=== PATIENT | female | born 1995 | race Caucasian/White ===

== ENCOUNTER 2024-12-23 20:53 | Emergency (ER) | payer SELFPAY ==
--- OUTSIDE RECORDS SUMMARY | 2022-08-02 08:21 | XMS_ITS | Continuity of Care Document ---
Author Organization [facility] [employer] [facility] Address [address] [place] [address] Phone Care Team Providers Care Wrapping Clerk Name Role Phone Scar Alexander APRN Unavailable Unavailable Allergies, Adverse Reactions, Alerts Substance Reaction Status Criticality pork derived (porcine) Vomitting Active No In formation Medications Medication Instructions Dosage Effective Dates (start - stop) Status Comments Keppra 1,000 mg tablet take 1 tablet by oral route every 12 hours 1000 MG - Active 28 mg-800 mcg tablet take 1 tab po once daily - Active Procedures Procedure Date BODY MASS INDEX DOCD OFFICE/OUTPATIENT VISIT, EST ROUTINE VENIPUNCTURE ROUTINE VENIPUNCTURE OFFICE/OUTPATIENT VISIT, EST URINE TEST OFFICE/OUTPATIENT VISIT, NEW Advance Directives Directive Yes / No Effective Date File Name No Information Encounters Encounter Description Practice Location Reason(s) For Visit Diagnoses Date Provider Providers Copied on Encounter [facility] [employer] [facility], [address], [place], [place], [id number], [place] tel:[phone] Quick Sick - LSX No Information 3 Benjamin Abbott. [address], [id number] [address], [place], [address], [place]. tel:[phone] OFFICE/OUTPA TIENT VISIT, EST [facility], [address] [place] [address], [id number], [place] tel:[phone] Quick Sick - LSX STI screening (chief complaint) STD screening - GC / Chlamydia Benjamin Abbott. [address] [place] [address], [id number] [address], [address], [place]. tel:[phone] [facility], [address] [place] [address], [id number], [place] tel:[phone] [place] No Information Aug-0 9 7 Maria Del Rosario Cottrell. [address] [place] [address], [id number] [address] [place] [address], [address], [place]. tel:[phone] OFFICE/OUTPA TIENT VISIT, [facility], [address] [place] [address], [id number], tel:[phone] Demetrius seizures (chief complaint)n ew patient (chief complaint) Seizure disorderPrediabet esNicotine usePre-conception counselingGERD 8 7 Ever Barrera. [address] [place] [address], [address] [place] [address], [address], [place]. tel:[phone] OFFICE/OUTPA TIENT VISIT, [facility], [address] [place] [address], [id number], tel:[phone] Quick Sick - LSX Medication refill (chief complaint) Nicotine useMedication refillAmenorrhea, unspecified 0 2201 7 Yanique [employer] Shaniqua. [address] [place] [address], [id number] [address] [place] [address], [id number] , [place]. tel:[phone] Family History Family Member Type Diagnosis Age At Onset Negative family hx Problem (finding) Anesthesia proble ms Negative family hx Problem (finding) Dyslipidemia Negative family hx Problem (finding) Anemia Negative family hx Problem (finding) CAD Negative family hx Problem (finding) Cancer Positive family hx Problem (finding) deafness Positive family hx Problem (finding) asthma Negative family hx Problem (finding) tuberculosis Negative family hx Problem (finding) Seizures Negative family hx Problem (finding) Kidney disease Negative family hx Problem (finding) Allergies Negative family hx Problem (finding) Bleeding disorder s Negative family hx Problem (finding) Hypertension Negative family hx Problem (finding) Diabetes Payers Payer name Insurance type Covered alliance party ID Ronald fam(s) [employer] Medicaid CI [id number] Social History Type Description Quantity Date Captured Comments Sex Female Smoking Status No Information Sexual Orientation Straight or heterosexual Gender Identity Female Chief Complaint And Reason For Visit No Information Reason For Referral Reason For Referral No Information Plan Of Treatment Date Type Action Status Referral ordered Future Order: Lab Order Keppra ( Levetiracetam) level ([id number]), Collected on: , Sent on: Sent History Of Present Illness Encounter Date Complaint History Of Prese nt Illness STI screening Her boyfriend ch eated on her. She is asymptomatic. Her boyfriend had reactive syphilis but it was false positive. He is being retested again new patient Pt [facility].Pt reports hx of the following chronic conditions: prediabetes, exercise induced asthma, seizure disorder, GERDPt takes the following medications regularly: keppra 750 mg BID, ibuprofen 800 mg, pickle juice for her GERD sxs (is not intersted in other meds states she failed tums rolaids, zantac, prilosec)Pt reports hx of the following surgeries: wisdom teeth extractionPt lives with ravinder Garcia, and 2 other adults and 1 childPt does not work. Pt does not drive. Pt's LMP was 07/27/16Pt is Pt is sexually active with Song. Is trying to conceive. Pt does smoke tobacco 1 ppd x 1 year. Pt does drink alcohol (beer, and liquor) 3 drinks a sitting. once or twice a month. Pt denies use of tobacco, alcohol and ilicit drugs. seizures Pt presents to [facility] c/o seizure disorder. 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 Reports she was followed by 2 difrerent outside PCPs in the recent past and has been evaluated by a neurologist as well. Pt states she has had MRI/EEG done in the past and reports she is the first in her family to have a seizure disorder. Pt feels like her current mediations are not working as she is still having seizures at least once a week. Pt reports she thinks she had a seizure while sleping 2 nights ago, seizure was unwitnessed, but woke up with bite on tongue. Pt reprots that her seizures usually last about 15-20 seconds, denies that she stops breathing or has urinary/fecal incontinence, does report + post-ictal states after seizures. Pt's reports last seizure he witndessed was 2 weeks ago, and he tells a similar account of her seizures. Pt reports triggers for seizures include bright lights, stress, not eating meals regularly/eating too much, not enough sleep. Pt denies any recent falls or head trauma due to LOC with seizure. Pt does not drive, pt does not work, and pt is never left alone at home for more than 2 hours per the ER doctors instructions. Pt reports she is currently taking keppra 750 mg BID and it is not enough. Pt is requesting medication change. reports she was taking lamictal XR 500 mg once daily in the past and that helped but had to stop it due to cost, and was on depakote up until she got late lastyear. Of note pt and her are trying to conceive. Pt is not on a vitamin. Pt reports she miscarried her frist in May of this year and this is why she is still on keppra as they had to stop depakote. Medication refill Acute clinic; 21 yo female presents for medication refill on Keppra for hx of seizures. Pt is desiring to establish care at , appointment scheduled for 08/22/16. CTII notes indicate that pt has been seen various times since May for refills, told to follow up with neurologist, pt has an outstanding balance with neuro, so has not been seen. Pt reports most recent refill was from [facility] 2 weeks ago. Pt last dose of Keppra was this morning. States last seizure was last night while she was sleeping, states she is controlled during the day, but not at night. States she is having seizures at night because she wakes up feeling tired and occasionally feels as if she bit her tongue. No urinary incontinence has not witnessed seizure activity at night. Not well controlled on Keppra, but states it is the only thing that she can afford. Lamictal XR is the only thing that has helped, but she cannot take afford it. Pt states that the generic caused increased seizure activity. Pt reports she has had seizures since she was 15.[place] name: Imelda Potter ([facility])( 07/2016) Functional Status Date Functional Assessmen t No Information Instructions Date Instruction Additional Infor mation No Information Assessments Type Assessment Date No Information Patient Care Teams Name Effective Dates (start - stop) Status Members No Information
--- OUTSIDE RECORDS SUMMARY | 2024-12-23 21:01 | XMS_ITS | Encounter Summary ---
Author Organization [facility] Address [address] [address] Phone Care Team Providers Care Lawn Service Supervisor Name Role Phone Theo Brown MD Primary Care Provider [phone] Pina Bassett Unavailable [phone] Reason for Visit * Reason Onset Date Comments Asking for Neuro Referral, Having Seizures DAILY & Migraines 04/17/2018 Encounter Details Date Type Department Care Team (Late st Contact Info) Description 04/17/2018 Telephone [facility] [address] [place] [id number] Allison Weir, DUTCH [address] [place] [address] Asking for Neuro Referral, Having Seizures DAILY & Migraines Social History Tobacco Use Types Packs/Day Years Used Date Smoking Tobacco: Every Day Cigarettes 0.5 105 Smokeless Tobacco: Former Comments:used to smoke 1.5 p acks per day before - tried vape during , and decided to stop due to Alcohol Use Standard Drinks/Week Comments No 0 (1 standard drink = 0.6 oz pure alcohol) maybe drinks once month, when not Comments Yes Sex and Gender Information Value Date Recorded Sex Assigned at Not on file Legal Sex Female 9:43 PM CDT Gender Identity Not on file Sexual Orientation Not on file documented as of this encounter Functional Status * Patient's Vision Adequate to Safely Complete Daily Activities Answer Date of Assessment Author Yes 04/30/2017 8:33 PM BOTTOM SAW OPERATOR Benito Vargas, RN * Patient's Judgement Adequate to Safely Complete Daily Activities Answer Date of Assessment Author Yes 04/30/2017 8:33 PM BOTTOM SAW OPERATOR Benito Vargas RN documented as of this encounter Mental Status * Patient's Memory Adequate to Safely Complete Daily Activities Answer Entry Date Author Yes 04/30/2017 8:33 PM BOTTOM SAW OPERATOR Benito Vargas RN documented in this encounter Miscellaneous Notes * Telephone Encounter - Allison Weir RN - 04/17/2018 12:[address] Brown: FYI... Pt with appt tomorrow - Refused appt today. Pt calling for a Neuro referral ([facility]). States she has NOT seen a Neurologist since she was 15 - when her seizures started. Pt is in her first Trimester - seeing Dr. Garrison Hernandez on 04/24/18 for her Regular Appt & States she is seeing HIM for her F/[facility] yesterday for UTI. After further discussion, pt states, I am having seizures everyday while my little one is napping . Pt also having Migraines lately . She is being short with me because I told her that I can't just send Dr. Brown a message & she NTBS soon . I sent a soft transfrer - pt was offered a 1:45 PM appointment with you TODAY, she told Micki This is ridiculous, I don't have a ride . Pt made an appointment for tomorrow, , 04/18/2018 @ 2:15 PM. OM SAW OPERATOR documented in this encounter Plan of Treatment Not on file documented as of this encounter Visit Diagnoses Not on filedocumented in this encounter Care Teams Lawn Service Supervisor Relationship Specialty Start Date End Date Theo Brown MD [address] [place] [address] PCP - General Family Medicine 10/09/16 Pina Bassett LIMHP [address] [facility] [place] [address] Counselor Behavioral Health 10/08/19 08/11/20 documented as of this encounter
--- OUTSIDE RECORDS SUMMARY | 2024-12-23 21:01 | XMS_ITS | Clinical Summary ---
Author Organization [facility] Address [address] [place] [address] Care Team Providers Care Product Safety Compliance Leader Name Role Phone Theo Brown MD Primary Care Provider [phone] Allergies Active Allergy Reactions Criticality Noted Date Comments Adhesive Itching,Rash High 04/27/2017 Atomoxetine History Unknown 04/21/2020 Lactose Diarrhea 12/17/2019 Patient states she can still eat cheese or sour cream. Latex Rash High 04/18/2018 Nickel Itching 09/07/2020 Silver Sulfadiazine Rash High 10/24/2019 Medications acetaminophen (TYLENOL) 325 mg tablet Take 650 mg by mouth every 6 (six) hours as needed. Active DME MISCIndications:D urable Medical Equipment Atomizer for Nayzilam 1 Units 1 021 Active ondansetron (ZOFRAN-ODT) 4 mg disintegrating tabletIndications :Acute Gastroenteritis-r elated Vomiting in Pediatrics Take 1 tablet (4 mg total) by mouth every 6 (six) hours as needed for Nausea or Vomiting. 20 tablet 023 Active sertraline (ZOLOFT) 100 mg tablet Take 1 tablet (100 mg total) by mouth 1 (one) time a day. 023 Active midazolam (NAYZILAM) 5 mg/spray (0.1 mL) [place] 1 spray by Nasal route See Admin Instructions. Instill one spray (5 mg) in one nostril as needed for generalized seizure greater than 3 minutes or 3 focal seizures within 4 hours or any seizure with respiratory distress - may use an additional spray in opposite nostril after 10 minutes if no response. No more than 2 sprays in 24 hours. 2 each 1 024 Active cloBAZam (ONFI) 10 mg Tab tablet Take 2 tablets (20 mg total) by mouth bedtime. 180 tablet 1 025 Active BRIVIACT 100 mg Tab tablet TAKE ONE TABLET BY MOUTH TWO TIMES A DAY 180 tablet 1 Active brivaracetam (BRIVIACT) 100 mg Tab tablet Take 1 tablet (100 mg total) by mouth in the morning and 1 tablet (100 mg total) before bedtime. 180 tablet 1 025 2024 Discontinued(R eorder) cloBAZam (ONFI) 10 mg Tab tablet Take 2 tablets (20 mg total) by mouth bedtime. 180 tablet 1 025 2024 Discontinued(R eorder) brivaracetam (BRIVIACT) 100 mg Tab tablet Take 1 tablet (100 mg total) by mouth in the morning and 1 tablet (100 mg total) before bedtime. 180 tablet 1 025 2024 Discontinued Active Problems Problem Noted Date Diagnosed Date Suicidal ideation 07/11/2022 Recurrent major depressive disorder 06/27/2022 Nausea 06/24/2022 Assessment & Plan (06/27/2022 12:52 PM CDT): -overnight 06/23-06/24, experienced episode of dizziness and nausea that improved with half liter bolus of lactated Ringer's and ondansetron. -Reports that she has had difficulty with nausea/vomiting/dizziness since starting the keppra, she believes this is likely contributing. Plan: - Neurology consulted to assist in possible titration/changes to antiseizure medications -See intentional overdose assessment & plan Intentional overdose 06/23/2022 Assessment & Plan (06/27/2022 12:51 PM CDT): -Reports taking approximately 40 pills total in an attempt to end her life. -Reports financial stressors as a motivator; lost her job and will become homeless in August. -Reports significant other told her she deserves her changes in socioeconomic circumstances Ingestion included: -Keppra -Lamictal -Vtiamin B6 -Unknown antihistamine -Poison control without any concrete recommendations with this specific overdose -Tylenol, salicylate and alcohol negative on admission. 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 Currently maintained on Keppra, Lamictal, Onfi. Uncertain date of last seizure. Keppra level on admission 209 Lamictal level 20.7 Plan: -Neurology consulted for assistance in restarting AEDs, appreciate their help - All AEDs restarted at home doses Psychogenic nonepileptic seizure 09/28/2011 Encounters Date Type Department Care Team Description 12/16/2024 Refill Neurology at [address], [address] [address] Duncan Park MD Medication Refill 11/25/2024 Telephone Neurology at [address], [facility] [address] [place] [address] Dalia Rousseau RN from Last 3 Months Immunizations Immunization Administration Dates Next Due DTaP 10/16/2001,12/05/1999,1996 ,1996 FLU VACCINE QUADRIVALENT PF 12/19/2019, 9,11/17/2016,12/23/2014 Hepatitis B 1996,1996,1996 HiB 1996,1996 IPV 10/16/2001,12/05/1999,1996 ,1996 MMR 05/02/2017,10/16/2001,12/05/1999 Tdap 09/11/2018,02/21/2017 Varicella 11/16/2018,09/23/2007,12/05/1999 Family History Medical History Relation Name Comments Cancer Father Heart disease Father Hypertension Father Stroke Father Relation Name Status Comments Father Mother Alive Sister Jane Alive Social History Tobacco Use Types Packs/Day Years Used Date Smoking Tobacco: Every Day Cigarettes 1 4 Smokeless Tobacco: Never Tobacco Cessation:Ready to Q uit: Not Asked; Counseling Given: Not Answered Alcohol Use Standard Drinks/Week Comments Not Currently 0 (1 standard drink = 0.6 oz pur e alcohol) Interpersonal Safety Screen Answer Date Recorded Are you in a relationship wh ere you have been physically or emotionally hurt or threatened? Not on file 01/20/2023 Interpersonal Safety Screen Answer Date Recorded Threatened, Abused, Neglecte d Physically, Emotionally or Sexually by a Partner/Spouse/Family Member Not on file 01/20/2023 Threat of harm to children or pets Not on file 01/20/2023 Preventing from seeing/conta cting friends or activities outside the home Not on file 01/20/2023 Feels unsafe returning to place where living Not on file 01/20/2023 Treated well by partner/spouse/family member Not on file 01/20/2023 Interpersonal Safety Screen Answer Date Recorded Are you in a relationship wh ere you have been physically or emotionally hurt or threatened? Not on file 01/20/2023 Comments No Sex and Gender Information Value Date Recorded Sex Assigned at Female 11/14/2019 7:35 AM CDT Legal Sex Female 8:39 PM JR. JAVA DEVELOPER Gender Identity Female 11/14/2019 7:35 AM CDT Sexual Orientation Straight 11/14/2019 7: 35 AM CDT Last Filed Vital Signs Vital Sign Reading Time Taken Comments Blood Pressure 107/64 10/08/2023 4:25 PM CDT Pulse 82 10/08/2023 4:25 PM CDT Temperature 35.7 C (96.3 F) 10/08/2023 4:25 PM CDT Respiratory Rate 18 03/19/2023 2:25 PM JR. JAVA DEVELOPER Oxygen Saturation 100% 03/19/2023 2:25 PM JR. JAVA DEVELOPER Inhaled Oxygen Concentration - - Weight 71.1 kg (156 lb 11.2 oz) 10/08/2023 4:25 PM CDT Height 157.5 cm (5' 2 ) 10/08/2023 4:25 PM CDT Body Mass Index 28.66 10/08/2023 4:25 PM CDT Plan of Treatment Upcoming Encounters Date Type Department Care Team (Late st Contact Info) Description 09/04/2025 11:00 AM CDT Office Visit Neurology at [facility] [address] [facility] [address] [place] [address] Duncan Park MD [address] [address] [email or web address] Health Maintenance Due Date Last Done Comments Pap Smear 2009 HPV vaccines (1 - 3-dose SCDM series) 2023 COVID-19 Vaccines ( - season) 2024 Influenza vaccines (#1) 2024 12/19/19, 11/16/2018, 11/17/2016, Additional history exists Td,Tdap vaccines (3 - Td or Tdap) 09/11/2028 09/11/2018, 02/21/2017 Hepatitis B vaccines Completed 1996, 1996, 1996 Meningococcal serogroup B vaccines Aged Out No longer eligible based on patient's age to complete this topic Pneumococcal vaccines: <50 years (At-Risk and Peds) Aged Out No longer eligi ble based on patient's age to complete this topic Medical Devices Implanted Type Area Well Service Floor Worker Device Identifier Shelf Expiration Date Model / Serial / Lot Lead Perennia 2mm Vagal Nerve - [id number] Implanted:Qty: 1 on 09/09/2020 by Scar Grullon MD at [facility] N/A: Chest [employer] 02/18/2023 [id number] / [id number] / Stim Sentiva 1000 Vagal Nerve - [id number] Implanted:Qty: 1 on 09/09/2020 by Scar Grullon MD at [facility] Left: Chest [employer] 08/05/2022 1000 / [id number] / Advance Directives Documents on File Type Date Recorded Patient Mechanical Supervisor Expl anation Advance Directives and Flakito g Will 08/05/2011 12:00 AM * Full Code (Latest Code Status on File) Date Activated Date Inactivated Comments 06/23/2022 11:47 AM 06/28/2022 4:06 PM Question Answer Comments Resuscitation contingencies discussed & agreement was reached with: Patient Decision making: Patient is able to m edil informed choice about care * Full Code Date Activated Date Inactivated Comments 09/08/2020 11:01 AM 09/09/2020 5:55 PM Question Answer Comments Resuscitation contingencies discussed & agreement was reached with: Patient Decision making: Patient is able to m edil informed choice about care * Full Code Date Activated Date Inactivated Comments 12/15/2019 9:51 AM 12/19/2019 5:20 PM Question Answer Comments Resuscitation contingencies discussed & agreement was reached with: Patient Decision making: Patient is able to m edil informed choice about care * Full Code Date Activated Date Inactivated Comments 04/18/2018 8:52 PM 04/19/2018 7:22 PM Question Answer Comments Resuscitation contingencies discussed & agreement was reached with: Patient Decision making: Patient is able to m edil informed choice about care Care Teams Product Safety Compliance Leader Relationship Specialty Start Date End Date Theo Brown MD [address] [place] [address] PCP - General 02/04/18
--- OUTSIDE RECORDS SUMMARY | 2024-12-23 21:01 | XMS_ITS | Encounter Summary ---
Author Organization [facility] Address [address] [place] [address] Care Team Providers Care Senior Laboratory Technician Name Role Phone Theo Brown MD Primary Care Provider [phone] Reason for Visit * Reason Comments Medication Refill Encounter Details Date Type Department Care Team ([facility] st Contact Info) Description 12/16/2024 Refill Neurology at [address] [address] Duncan Park MD [address] [place] [phone] [email or web address] Medication Refill Social History Tobacco Use Types Packs/Day Years Used Date Smoking Tobacco: Every Day Cigarettes 1 4 Smokeless Tobacco: Never Alcohol Use Standard Drinks/Week Comments Not Currently [...] AM CDT Legal Sex Female 8:39 PM PERSONALIZED LIVING ASSISTANT Gender Identity Female 11/14/2019 7:35 AM CDT Sexual Orientation Straight 11/14/2019 7: 35 AM CDT documented as of this encounter Functional Status * Are you deaf or have difficulty hearing? Answer Date of Assessment Author No 04/18/2018 10:05 PM Ayaka Tobin RN * Are you blind or have difficulty seeing, even when wearing glasses? Answer Date of Assessment Author No 04/18/2018 10:05 PM Ayaka Tobin RN * Do you have difficulty walking or climbing stairs? Answer Date of Assessment Author No 12/15/2019 9:55 AM CDT Ayaka Murphy RN * Do you have difficulty dressing or bathing? Answer Date of Assessment Author No 12/15/2019 9:55 AM CDT Ayaka Murphy RN * Do you have difficulty doing errands alone such as visiting a doctor's office or shopping? Answer Date of Assessment Author No 04/18/2018 10:05 PM Ayaka Tobin RN documented as of this encounter Mental Status * Do you have difficulty concentrating, remembering, or making decisions? Answer Entry Date Author No 04/18/2018 10:05 PM Ayaka Tobin RN documented in this encounter Progress Notes * Dalia Rousseau RN - 12/16/2024 3:04 PM CDT Refill request for briviact pended for 90 days with 1 refill (to [facility] not [facility]). Dalia Rousseau RN 3:35 PM, 12/16/2024 documented in this encounter Plan of Treatment Upcoming Encounters Date Type Department Care Team (Late st Contact Info) Description 09/04/2025 11:00 AM CDT Office Visit Neurology at [facility] [address] [facility] [address] [place] [address] Duncan Park MD [address] [address] [email or web address] documented as of this encounter Visit Diagnoses Not on filedocumented in this encounter Care Teams Senior Laboratory Technician Relationship Specialty Start Date End Date Theo Brown MD [facility] [place] [address] PCP - General 02/04/18 documented as of this encounter
--- OUTSIDE RECORDS SUMMARY | 2024-12-23 21:01 | XMS_ITS | Clinical Summary ---
Author Organization [facility] Address [address] [address] Care Team Providers Care Plant Production Manager Name Role Phone Theo Brown MD Primary Care Provider [phone] Allergies Active Allergy Reactions Criticality Noted Date Comments Adhesive Itching,Rash Low 04/27/2017 Atomoxetine 04/21/2020 Lactose Diarrhea 12/17/2019 Patient states she can still eat cheese or sour cream. Latex, Natural Rubber 10/27/2017 Nickel 09/07/2020 Silver Sulfadiazine Rash,Swelling High 10/24/2019 Medications * This document contains information received from the source organization and may not represent a complete record from that organization. levETIRAcetam (KEPPRA) 1000 MG tablet Take 4 tabs by mouth once daily 0 01/24/20 17 Active acetaminophen (TYLENOL) 500 MG tabletIndications: pain Take 1,000 mg by mouth every 6 (six) hours as needed for pain. Active lamoTRIgine (LaMICtal) 100 MG tablet Take 2 tabs by mouth every morning and 3 tabs by mouth every evening Active levETIRAcetam 750 mg Tablet Extended Release 24 hr 04/04/19 21 Active cloBAZam 10 mg Tablet Take 5 mg by mouth 2 (two) times a day. Active hydrocortisone 2.5 % creamIndications:H emorrhoids, unspecified hemorrhoid type Apply topically 2 (two) times a day as needed. 28 g 02/15/20 21 Active HYDROcodone-acetam inophen (NORCO) 5-325 mg tablet Take 1 tablet by mouth every 6 (six) hours as needed for pain. Max Daily Amount: 4 tablets 10 tablet 03/17/19 Active Additional Information Patient not taking.Reason: Others, Reported on 10/09/2021 ondansetron (ZOFRAN-ODT) 4 MG disintegrating tablet Take 1 tablet (4 mg total) by mouth every 8 (eight) hours as needed. Dispense #30 30 tablet 03/17/19 Active ibuprofen (ADVIL,MOTRIN) 800 MG tablet Take 1 tablet (800 mg total) by mouth every 8 (eight) hours as needed for pain. 30 tablet 03/17/19 Active diclofenac (VOLTAREN) 1 % GelIndications:Rex webster trochanteric bursitis of left hip Apply 2 g topically 3 (three) times a day as needed. 100 g 1 03/22/19 Active fluticasone propionate (FLONASE) 50 mcg/actuation nasal sprayIndications:P ostnasal drip 1 spray by Each Nostril route once daily. 9.9 mL 10/10/19 Active Additional Information Patient not taking.Reported on 05/12/2022 Active Problems Problem Noted Date Diagnosed Date Recurrent major depressive disorder 06/27/2022 Intentional overdose 06/23/2022 Overview (06/29/2022): Last Assessment & Plan: -Reports taking approximately 40 pills total in [...] as needed -Metoclopramide PRN - scopolamine patch Pelvic pain in female 08/28/2020 Heavy menses 01/09/2020 Social discord 11/17/2016 Anxiety and depression 05/29/2014 ADHD 04/16/2012 Constipation 04/16/2012 Dysmenorrhea 04/04/2012 Seizure disorder 04/02/2012 Psychogenic nonepileptic seizure 09/28/2011 Resolved Problems Problem Noted Date Diagnosed Date Resolved Date Supervision of normal pregna ncy in third trimester 11/16/2018 12/09/2018 Supervision of normal 08/25/2018 09/11/2018 Normal labor and delivery 04/30/2017 Normal , first 02/25/201709/02 Immunizations Immunization Administration Dates Next Due DTaP 10/16/2001, 0,1996,1996 HIB 1996,1996 Hepatitis B 1996,1996,1996 IPV 10/16/2001, 0,1996,1996 Influenza Four-QIV IM 6 MO+ ([id number]) 11/17/2016 Influenza Four-QIV PF 3+YR IM 12/19/2019 Influenza Four-QIV Pres Free 3+ IM 12/23/2014 Influenza Quad-QIV PF 3YR+ ([id number]) 11/16/2018 MMR VACCINE (MMR II, PRIORIX) (IMM44) 05/02/2017 ,10/16/2001,12/05/1999 Tdap 09/11/2018,02/21/2017 Varicella (VARIVAX) 11/16/2018,09/23/2007,1999 Family History Medical History Relation Name Comments Diabetes Father Colon cancer Other Uncle Cancer Paternal Grandfather Coronary artery disease Paternal Grandfather Stroke Paternal Grandfather Obesity Paternal Grandmother Relation Name Status Comments Father Mother Alive Other Uncle Other Paternal Grandfather Paternal Grandmother Social History Tobacco Use Types Packs/Day Years Used Date Smoking Tobacco: Every Day Cigarettes 0.2 105 Smokeless Tobacco: Never Tobacco Cessation:Ready to Q uit: No; Counseling Given: No Comments:used to smoke 1.5 packs per day before - tried vape during , and decided to stop due to Alcohol Use Standard Drinks/Week Comments Not Currently 0 (1 standard drink = 0.6 oz pure alcohol) maybe drinks once month, when not AUDIT-C Answer Date Recorded Frequency of Alcohol Consumption Monthly or less 09/22/2019 Average Number of Drinks Not on file 020 Frequency of Binge Drinking Not on file 09/03 Overall Financial Resource Strain (CARDIA) Answe r Date Recorded Difficulty of Paying Living Expenses Somewhat h[address] 08/25/2018 PHQ-2 Answer Date Recorded PHQ-2 Score 0 04/03/2019 Hunger Vital Sign Answer Date Recorded Worried About Running Out of Food in the Last Ye ar Sometimes true 08/25/2018 Ran Out of Food in the Last Year Sometimes true 08/25/2018 PRAPARE - Transportation Answer Date Re corded Lack of Transportation (Medical) No 08/25/2018 Lack of Transportation (Non-Medical) No 08/25/2018 [place] Depression Scale Answer Date Recorded [place] Depression Scale Total 10 12/10/2018 The thought of harming myself has occurred to me . Never 12/10/2018 Comments No Sex and Gender Information Value Date Recorded Sex Assigned at Not on file Legal Sex Female 9:43 PM CDT Gender Identity Not on file Sexual Orientation Not on file Last Filed Vital Signs Vital Sign Reading Time Taken Comments Blood Pressure 116/82 06/29/2022 11:49 AM CDT Pulse 115 05/12/2022 4:23 PM UNIT NURSE Temperature 36.9 C (98.4 F) 06/29/2022 11:49 AM CDT Respiratory Rate 16 06/29/2022 11:49 AM CDT Oxygen Saturation 99% 06/29/2022 11:49 AM CDT Inhaled Oxygen Concentration - - Weight 72.6 kg (160 lb) 06/29/2022 11:49 AM CDT Height 157.5 cm (5' 2.01 ) 05/12/2022 4:23 PM CS T Body Mass Index 29.26 05/12/2022 4:23 PM UNIT NURSE Plan of Treatment Not on file Insurance [facility] [address] [id number] [employer] [facility] Advance Directives Documents on File Type Date Recorded 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 Power_of_Attorney 10/23/2013 6:01 PM * Full Code (Latest Code Status on File) Date Activated Date Inactivated Comments 11/16/2018 4:54 AM 11/17/2018 9:30 PM Question Answer Comments This code status was determined by: Other (pleas e list) Patient is * Full Code Date Activated Date Inactivated Comments 11/16/2018 4:45 AM 11/16/2018 4:54 AM Question Answer Comments This code status was determined by: Other (pleas e list) Patient is * Full Code Date Activated Date Inactivated Comments 08/25/2018 9:31 PM 08/26/2018 2:31 AM Question Answer Comments This code status was determined by: Other (pleas e list) Patient is * Full Code Date Activated Date Inactivated Comments 05/01/2017 11:20 AM 05/03/2017 2:39 PM Question Answer Comments This code status was determined by: Patient * Full Code Date Activated Date Inactivated Comments 04/30/2017 9:08 PM 05/01/2017 11:20 AM Question Answer Comments This code status was determined by: Other (pleas e list) Patient is Care Teams Plant Production Manager Relationship Specialty Start Date End Date Theo Brown MD [address] [facility] [address] [place] [address] PCP - General Family Medicine 10/09/16
--- OUTSIDE RECORDS SUMMARY | 2024-12-23 21:01 | XMS_ITS | Referral Summary ---
Author Organization [facility] Address [address] [address] Care Team Providers Care Assembler Molded Frames Name Role Phone Theo Brown MD Primary Care Provider [phone] Allergies Active Allergy Reactions Criticality Noted Date [...] 10/16/2001, 0,1996,1996 Influenza Four-QIV IM 6 MO+ ([id number]) 11/17/2016 Influenza Four-QIV PF 3+YR IM 12/19/2019 Influenza Four-QIV Pres Free 3+ IM 12/23/2014 Influenza Quad-QIV PF 3YR+ ([id number]) 11/16/2018 MMR VACCINE (MMR II, PRIORIX) (IMM44) 05/02/2017 ,10/16/2001,12/05/1999 Tdap 09/11/2018,02/21/2017 Varicella (VARIVAX) 11/16/2018,09/23/2007,1999 Social History Tobacco Use Types Packs/Day Years [...] 08/25/2018 Lack of Transportation (Non-Medical) No 08/25/2018 [place] Depression Scale Answer Date Recorded [place] Depression Scale Total 10 12/10/2018 The thought [...] AM CDT Pulse 115 05/12/2022 4:23 PM STATION INSTALLER Temperature 36.9 C (98.4 F) 06/29/2022 11:49 AM CDT Respiratory Rate 16 06/29/2022 11:49 AM CDT Oxygen Saturation 99% 06/29/2022 11:49 AM CDT Inhaled Oxygen Concentration - - Weight 72.6 kg (160 lb) 06/29/2022 11:49 AM CDT Height 157.5 cm (5' 2.01 ) 05/12/2022 4:23 PM CS T Body Mass Index 29.26 05/12/2022 4:23 PM STATION INSTALLER Functional Status * Patient's Vision Adequate to Safely Complete Daily Activities Answer Date of Assessment Author Yes 11/16/2018 5:50 AM CDT * Patient's Judgement Adequate to Safely Complete Daily Activities Answer Date of Assessment Author Yes 11/16/2018 5:50 AM CDT Mental Status * Patient's Memory Adequate to Safely Complete Daily Activities Answer Entry Date Author Yes 11/16/2018 5:50 AM CDT Plan of Treatment Not on file Insurance [facility] [address] [phone] [facility] [place] [address] [phone] Advance Directives Documents on File Type Date Recorded 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
--- OUTSIDE RECORDS SUMMARY | 2024-12-23 21:01 | XMS_ITS | Encounter Summary ---
Author Organization [facility] Address [address] [place] [address] Phone Care Team Providers Care Instrument Technologist Name Role Phone Theo Brown MD Primary Care Provider [phone] Reason for Visit * Reason Onset Date Comments Other Question 09/08/2020 Encounter Details Date Type Department Care Team (Late st Contact Info) Description 09/08/2020 Telephone [facility] Medicine [facility] [address] [facility] [address] [place] [address] Theo Brown MD [address] [facility] [place] [address] Other Question Social History Tobacco Use Types Packs/Day Years Used Date Smoking Tobacco: Every Day Cigarettes 0.2 105 Smokeless Tobacco: Never Comments:used to smoke 1.5 p acks per day before - tried vape during , and decided to stop due to Alcohol Use Standard Drinks/Week Comments Yes 0 (1 standard drink = 0.6 oz [...] 08/25/2018 Lack of Transportation (Non-Medical) No 08/25/2018 [place] Depression Scale Answer Date Recorded [place] Depression Scale Total 10 12/10/2018 The thought of harming myself has occurred to me . Never 12/10/2018 Comments No Sex and Gender Information Value Date Recorded Sex Assigned at Not on file Legal Sex Female 9:43 PM CDT Gender Identity Not on file Sexual Orientation Not on file COVID-19 Exposure Response Date Recorded In the last month, have you been in contact with someone who was confirmed or suspected to have Coronavirus / COVID-19? No / Unsure 09/07/2020 2:11 PM CDT documented as of this encounter Functional Status * Patient's Vision Adequate to Safely Complete Daily Activities Answer Date of Assessment Author Yes 11/16/2018 5:50 AM CDT Isaías Rutherford RN * Patient's Judgement Adequate to Safely Complete Daily Activities Answer Date of Assessment Author Yes 11/16/2018 5:50 AM CDT Isaías Rutherford RN documented as of this encounter Mental Status * Patient's Memory Adequate to Safely Complete Daily Activities Answer Entry Date Author Yes 11/16/2018 5:50 AM CDT Isaías Rutherford RN documented in this encounter Miscellaneous Notes * Telephone Encounter - Michelle Duran CMA - 09/08/2020 9:52 AM CDT Spoke with sofie about faxing over papers this morning already * Telephone Encounter - Eugenie Sanderson - 09/08/2020 9:36 AM CDT Sofie with [facility] needs the h&p, labs and ekg pt had done on 09/07/[address] Mckeon. Fax this to [phone]. She would like to receive this by 12:00 or 1:00 pm today 09/08/20. Any questions call her at [phone]. //mb documented in this encounter Plan of Treatment Not on file documented as of this encounter Visit Diagnoses Not on filedocumented in this encounter Care Teams Instrument Technologist Relationship Specialty Start Date End Date Theo Brown MD [address] [facility] [address] [place] [address] PCP - General Family Medicine 10/09/16 documented as of this encounter
--- OUTSIDE RECORDS SUMMARY | 2024-12-23 21:01 | XMS_ITS | Encounter Summary ---
Author Organization [facility] Address [address] [facility] [place] [address] Phone Care Team Providers Care Director Of Acquisitions Name Role Phone Theo Brown MD Primary Care Provider [phone] Pina Bassett Unavailable [phone] Reason for Visit * Reason Onset Date Comments Appointment 12/20/2016 Encounter Details Date Type Department Care Team ([facility] st Contact Info) Description 12/20/[place] [address] Samuel Burdick, DPM [address] [facility], [address] [place] [address] Appointment Social History Tobacco Use Types Packs/Day Years Used Date Smoking Tobacco: Former Smokeless Tobacco: Former Alcohol Use Standard Drinks/Week Comments No 0 (1 standard drink = 0.6 oz pur e alcohol) Comments Yes Sex and Gender Information Value Date Recorded Sex Assigned at Not on file Legal Sex Female 9:43 PM CDT Gender Identity Not on file Sexual Orientation Not on file documented as of this encounter Miscellaneous Notes * Telephone Encounter - Rhiannon Trivedi - 12/20/2016 3:08 PM CDT I spoke with this patient and moved her appointment to this Sunday. * Telephone Encounter - Valerie Ramey - 12/20/2016 2:13 PM CDT Rhiannon - would you please address? Thank you * Telephone Encounter - Earline Dang - 12/20/2016 12:02 PM CDT This patient has returned a call from/requests to speak with: Staff member requested: Nurse Provider: Dr. Burdick Details of request: Would like to know what she can do to take care of her toe while she waits to be seen on 12/25. Patient call back number: [phone] documented in this encounter Plan of Treatment Not on file documented as of this encounter Visit Diagnoses Not on filedocumented in this encounter Care Teams Director Of Acquisitions Relationship Specialty Start Date End Date Theo Brown MD [address] [facility] [address] [place] [address] PCP - General Family Medicine 10/09/16 Pina Bassett [facility] [address] [facility] [place] [id number] Counselor Behavioral Health 10/08/19 08/11/20 documented as of this encounter
[2024-12-23 21:02] VITALS: BP 128/91; PULSE 80; RESP 18; TEMP 37.3; O2SAT 99; BMI 28.0
--- NOTE | 2024-12-23 21:31 | ED_ITS ---
HPI - General Adult General: Chief complaint: General Medical Stated complaint: Missed seizure medicine Time Seen by Provider: 12/23/24 21:01 History of Present Illness: Patient is a 29-year-old female that is here from [place] with a history of epilepsy. She is chronically on Briviact, and clobazam. She states she has been out of her Briviact for 2 days. She continues on her clobazam. Patient states she used to be on Keppra. She is down here from [place] for family emergency and did not bring enough medications. She has been here just over 1 week. She is awaiting mail from [place] at this time. This was post to be her on Sunday. She states she does not not get an aura with her seizures General Complaint: Out of medications. Associated symptoms: Deny chest pain, confusion, dyspnea, headache(s), nausea, rash, palpitations or vomiting Related Data Previous Rx's ?Medication ?Instructions ?Recorded levetiracetam 500 mg 3,000 mg (6 x 500 mg) PO Q24 H 2 12/23/24 tablet,extended release 24 hr weeks #84 tabs (Keppra XR) Allergies Allergy/AdvReac Type Severity Reaction Status Date / Time adhesive tape Allergy ALGY-Rash Verified 12/23/24 21:07 Latex, Natural Rubber Allergy Unknown Verified 12/23/24 21:07 silver sulfadiazine (From Allergy Unknown Verified 12/23/24 21:07 Silvadene) Review of Systems General: Reports: 10 or more systems reviewed and unremarkable except in HPI and below Const: Denies: fever(s) or chills Eyes: Denies: change in vision or blurry vision ENMT: Denies: dental pain or dry mouth Card: Denies: chest pain or palpitations Resp: Denies: dyspnea or productive cough GI: Denies: abdominal pain, nausea or vomiting : Denies: flank pain or difficulty voiding Musc: Denies: neck pain, back pain or extremity pain Skin/Breast: Denies: rash or pruritus Neuro: Denies: headache(s), numbness in extremities, sensory changes, lack of coordination, frequent falls, dizziness, vertigo, confusion, behavioral changes or Slurred speech present Physical Exam Const: COMMON NORMALS: no acute distress, average body habitus and patient oriented x3 GENERAL APPEARANCE: cooperative and comfortable HENMT: COMMON NORMALS: normocephalic and atraumatic HEAD & SCALP: normocephalic and atraumatic Neck/C-Spine: COMMON NORMALS: full ROM, no lymphadenopathy and supple Lymph: LYMPHATIC: no lymphadenopathy noted Chest: COMMONS NORMALS: normal inspection of the chest and normal palpation of entire chest wall Resp: COMMON NORMALS: normal respiratory effort, No retractions and clear to auscultation bilaterally AUSCULTATION: clear to auscultation bilaterally Cardio: COMMON NORMALS: regular rate and regular rhythm RATE: regular rate RHYTHM: regular rhythm GI: COMMON NORMALS: Normal to inspection, nondistended, normoactive bowel sounds present, Soft to palpation, non-tender and No hepatosplenomegaly present PALPATION: Yes Soft to palpation and Yes No hepatosplenomegaly present : COMMON NORMALS: Yes no CVA tenderness BLADDER/KIDNEY EXAM: Yes no CVA tenderness Back/Pelvis: COMMON NORMALS: no CVA tenderness Extremity: COMMON NORMALS: normal to inspection, full ROM and capillary refill normal Neuro: COMMON NORMALS: patient oriented x3 and CN's II-XII intact bilaterally Psych: COMMON NORMALS: mental status grossly normal, Normal thought process present and cooperative THOUGHT PROCESS: Normal thought process present Course Vital Signs: Vital signs: Vital Signs Temperature 99.1 F 12/23/24 21:02 Pulse Rate 80 12/23/24 21:02 Respiratory Rate 18 12/23/24 21:02 Blood Pressure 128/91 12/23/24 21:02 Pulse Oximetry 99 12/23/24 21:02 Oxygen Delivery Me thod Room Air 12/23/24 21:02 MDM - General Adult Medical Decision Making I had a discussion with the patient regarding current medications that are both schedules. This is not something we can provide on an as-needed basis out of the emergency room. She does have clonazepam that is a schedule, that will keep her from withdrawing from benzodiazepines. She was previously on 3000 mg the XR Keppra, which will be added. This will need to be titrated while she is awaiting medications. Will give her 1000 mg here today, and have her take 2000 mg extended release tomorrow, and 3000 mg extended release on . No radiology studies performed this visit Discharge Plan Discharge Patient Disposition: Home Clinical Impression: Has run out of medications, History of epilepsy, Encounter for medical screening examination Condition: Stable Prescriptions: New levetiracetam [Keppra XR] 500 mg tablet extended release 24 hr 3,000 mg PO Q24H 14 Days Qty: 84 0RF Rx Instructions: Take 4 tablets tomorrow, 6 tablets on and continuing from 6 tablets from there Discharge Orders: Discharge ED (Routine); Ordered 12/23/24 Ordered By: Marisol Covarrubias Discharge Diet: Usual diet Discharge Activity: Resume usual activity Patient Instructions: Epilepsy (ED) Activity Restrictions/Additional Instructions: - Take your medication as prescribed - You will need to increase your dosage as the bottle is labeled - We are unable to do scheduled medications out of the ED. You will need to further discuss with your doctor in your state - Return to ED for further issues Thank you for choosing [facility] for your healthcare needs today. You have been screened and evaluated and felt safe for discharge. Health conditions do change or evolve sometimes and as such it is important that you follow up with your Primary Doctor to be re checked, 3-5 days is a general good time frame for follow up. You are always welcome to return to the ED for re assessment if your symptoms are worsening or you have new concerns Print Language: Armenian Coding Level of Care Code ED Cooperative Manager for Asif Love
[2024-12-23 21:36] VITALS: BP 103/72; PULSE 82; O2SAT 99
[2024-12-23 22:01] VITALS: BP 103/72; PULSE 65; O2SAT 100
== END 2024-12-23 22:01 | disposition home or self-care (01) ==
PROVIDERS: Emergency Provider Physician Assistant
DX: G40.909 Epilepsy, unspecified, not intractable, without status epilepticus (principal); Z91.198 Patient's noncompliance with other medical treatment and regimen for other reason; Z00.00 Encounter for general adult medical examination without abnormal findings
CPT/HCPCS: 99283; J9999